=== PATIENT | male | born 1995 | race Caucasian/White ===

== ENCOUNTER 2021-07-20 18:48 | Emergency (ER) | payer OTHER, MEDICAID ==
[~2021-07-20 18:48] MED LIST: no home meds
== END 2021-07-20 20:26 | disposition left against medical advice (07) ==
LOC: ER 18:49
DX: S61.219A Laceration without foreign body of unspecified finger without damage to nail, initial encounter (principal); Z53.21 Procedure and treatment not carried out due to patient leaving prior to being seen by health care provider; X58.XXXA Exposure to other specified factors, initial encounter; Y93.9 Activity, unspecified; Y92.9 Unspecified place or not applicable; Y99.9 Unspecified external cause status